=== PATIENT | female | born 1995 | race Caucasian/White ===

== ENCOUNTER 2018-04-07 08:04 | Emergency (ER) | payer OTHER ==
[~2018-04-07] VITALS: Ht 182.9 cm; Wt 144.2 kg
[~2018-04-07 08:04] MED LIST: HYDROCODONE-AP1 EAC6 PO; KEFLEX500 MG PO; MOMETASONE FURO60 ML TP; NOHOMEMEDICATIONS; ONDANSETRON HCL4 M2 PO; PREDNISONE 10 M10 M1 PO; PREDNISONE50 MG PO
[2018-04-07 08:42] LABS: ABSOLUTE EOSINOPHILS 0.1 thou/uL (0.0-0.7); ABSOLUTE LYMPHOCYTES 1.4 thou/uL (0.8-5.3); ABSOLUTE MONOCYTES 0.6 thou/uL (0.0-1.2); ABSOLUTE NEUTROPHILS 3.2 thou/uL (1.6-8.1); BASOPHILS 0.6 %; EOSINOPHILS 1.2 %; HEMATOCRIT 41.4 % (37.0-47.0); HEMOGLOBIN 13.7 gm/dL (12.0-15.0); LYMPHOCYTES 26.9 %; MCHC 33.1 g/dL (28.0-37.0); MCV 84.4 fL (80.0-100.0); MONOCYTES 10.9 %; MPV 8.1 fl. (7.2-11.1); NUCLEATED RBCS 0 /100WBC; PLATELET COUNT* 253 thou/uL (150-400); POLYS 60.4 %; RDW-CV 14.7 % (10.5-14.5); WBC 5.3 thou/uL (4.0-11.0)
[2018-04-07 09:00] LABS: ANION GAP 9 mmol/L (7-16); BUN 11 mg/dL (7-18); CALCIUM 8.9 mg/dL (8.5-10.1); CHLORIDE 103 mmol/L (98-107); CO2 27 mmol/L (21-32); CREATININE 0.7 mg/dL (0.6-1.3); GLUCOSE 86 mg/dL (70-99); POTASSIUM 3.7 mmol/L (3.5-5.1); SODIUM 139 mmol/L (136-145)
[2018-04-07 09:06] LABS: ALBUMIN 3.8 g/dL (3.4-5.0); ALKALINE PHOSPHATASE 106 U/L (46-116); LIPASE 94 U/L (73-393); MAGNESIUM 1.9 mg/dL (1.8-2.4); SGOT 18 U/L (15-37); SGPT 35 U/L (30-65); TOTAL BILIRUBIN 0.4 mg/dL (<0.1-1.0); TOTAL PROTEIN 7.5 g/dL (6.4-8.2); TROPONIN-I LEVEL <0.06 ng/mL (<0.06)
[2018-04-07] MEDS ORDERED: IBUPROFEN 800800 M1 PO (10:01)
[2018-04-07] MEDS ORDERED: FLEXERIL PO (10:01)
[2018-04-07 10:11] VITALS: BP 126/69
--- NOTE | 2018-04-08 10:24 | EKG ---
[place] [address] ELECTROCARDIOGRAM REPORT Name: HAZEL SWEENEY Room: [facility]#: [id number] Admission: 04/07/18 Attend Phys: Discharge: 04/07/18 Date of : [birth year] Report #: [id number] THIS REPORT FOR: //name// [facility] ED Test Date: 2018-04-07 Test Time: 09:34:37 Pat Name: HAZEL SWEENEY Department: Room: Gender: F Assembler Chassis: Marni BECKHAM : 1995 Requested By: Mario Tubbs Order Number: [id number] MD: Akshat Velez Measurements Intervals [place] Rate: 72 P: 29 [place]: 155 QRS: 58 QRSD: 104 T: 20 QT: 414 QTc: 454 Interpretive Statements Sinus rhythm Compared to ECG 08/28/2014 14:11:21 Sinus arrhythmia no longer present Electronically Signed On 04-08-2018 10:23:53 CDT by Akshat Velez [email or web address] <ELECTRONICALLY SIGNED> By: Akshat Velez MD, [facility] 04/08/18 1023 3 3 Akshat Velez MD, [facility] /EPI
--- NOTE | 2018-04-08 10:24 | EKG ---
[place] [address] ELECTROCARDIOGRAM REPORT Name: HAZEL SWEENEY Room: [facility]#: [id number] Admission: 04/07/18 Attend Phys: Discharge: 04/07/18 Date of : [birth year] Report #: [id number] THIS REPORT FOR: //name// 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: : 1995 Requested By: Mario Tubbs Order Number: [id number] Reading MD: Akshat Velez Measurements Intervals [place] Rate: 94 P: 41 [place]: 149 QRS: 63 QRSD: 101 T: 22 QT: 366 QTc: 458 Interpretive Statements Sinus rhythm Probable left atrial enlargement Baseline wander in lead(s) I,III,aVR,aVL,V1,V3 Compared to ECG 08/28/2014 14:11:21 Sinus arrhythmia no longer present Electronically Signed On 04-08-2018 10:23:50 CDT by Akshat Velez [email or web address] <ELECTRONICALLY SIGNED> By: Akshat Velez MD, [facility] 04/08/18 1023 0811 0811 Akshat Velez MD, [facility] /EPI
== END 2018-04-07 10:29 | disposition home or self-care (01) ==
LOC: M.ERS 08:04
PROVIDERS: Emergency Medicine Emergency Medical Services
DX: M79.1 Myalgia (principal); Z90.49 Acquired absence of other specified parts of digestive tract